=== PATIENT | male | born 1965 | race Caucasian/White ===

== ENCOUNTER 2024-12-15 11:46 | Emergency (ER) | payer BC, SELFPAY ==
[2024-12-15 11:56] VITALS: BP 113/87
[2024-12-15 12:38] LABS: % Basophils 0.6 % (0-2); % Eosinophils 1.5 % (0-6); % Immature Granulocytes 0.1 % (0-0.5); % Lymphocytes 28.2 % (20.5-51.1); % Monocytes 9.7 % (1.7-9.3); % Neutrophils 59.9 % (42.2-75.2); Absolute Eosinophils 0.1 10^3/uL (0-0.7); Absolute Monocytes 0.7 10^3/uL (0.1-0.6); Absolute Neutrophils 4.3 10^3/uL (1.4-6.5); Hematocrit 43.9 % (39.0-52.0); Hemoglobin 15.8 g/dL (13.0-18.0); Mean Corpuscular Hgb 30.7 pg (27.0-31.0); Mean Corpuscular Volume 85.4 fL (80.0-94.0); Mean Platelet Volume 10.4 fL (7.4-10.4); Nucleated Red Blood Cells % 0 % (-); Platelet Count 272 10^3/uL (130-400); Red Blood Cell Count 5.14 10^6/uL (4.70-6.10); Red Cell Dist. Width 11.5 % (11.5-14.5); White Blood Cell Count 7.2 10^3/uL (4.8-10.8)
[2024-12-15 12:47] LABS: COVID-19 Antigen Negative (Negative)
[2024-12-15 12:52] LABS: ALT (SGPT) 35 U/L (0-50); AST (SGOT) 20 U/L (17-59); Albumin 4.3 g/dl (3.5-5.0); Alkaline Phosphatase 44 U/L (38-126); Blood Urea Nitrogen 13 mg/dl (9-20); Calcium 9.4 mg/dl (8.4-10.2); Carbon Dioxide 26 mmol/L (22-30); Chloride 103 mmol/L (98-107); Glucose 98 mg/dl (70-99); Potassium 4.8 mmol/L (3.5-5.1); Sodium 136 mmol/L (135-145); Total Bilirubin 0.8 mg/dl (0.2-1.3); Total Protein 6.9 g/dl (6.3-8.2); eGFR > 60.00
--- NOTE | 2024-12-15 13:52 | ED.GENMED ---
History of Present Illness
General
Chief Complaint: Fever
Source: patient
Exam Limitations: none
Time Seen by Provider: 12/15/24 13:30
History of Present Illness
History of Present Illness:
59yoM with no significant past medical history presenting with his for evaluation of a fever. Patient had oral surgery 9 days ago in which she had a extraction and a bone graft. He was prescribed a week course of amoxicillin which he
completed. He was feeling well for the first few days procedure. About 4 to 5 days ago, he developed fevers, headache, body aches, and malaise. Tmax 101. He has mostly been in bed the past few days due to his symptoms. Last dose of Tylenol was
about 7 hours ago. He is actually feeling better today. Patient is otherwise asymptomatic and denies any ear pain, dental pain, facial swelling, neck stiffness, sore throat, vomiting, diarrhea, cough, abdominal pain, rash. No recent travel, sick
contacts, or history of IV drug use.
Past History
Past History
ED Past Medical History: None
Social History
Tobacco: Non-smoker
Personal:
Living: with family
Phy Exam
General Physical Exam
General Presentation: well appearing and no apparent distress
General age: appears stated age
General Skin: warm and dry
General Habitus: normal
General Mental: alert
ENT Exam
ENT Exam: TM's normal, pharynx normal, neck supple, normocephalic and other (Full ROM of cervical spine without nuchal rigidity. No evidence of abscess/infection at dental extraction site. No elevation of floor of mouth. No facial swelling.)
Eye Exam
Eye Exam: PERRL and conjunctiva normal
Cardiovascular Exam
Cardiovascular Exam: regular rate/rhythm and no murmur
Pulmonary Exam
Pulmonary Exam: lungs clear, no respiratory distress, no rales, no crackles and no rhonchi
Gastrointestinal Exam
Gastrointestinal Exam: non tender, soft and non distended
Neurological Exam
Neurological Exam: alert
Naeem Coma Scale
Eye Opening: Spontaneous
Verbal Response: Oriented
Motor Response: Obeys Commands
GCS Total Score: 15
Skin Exam
Skin Exam: normal color and warm/dry
Psychiatric Exam
Psychiatric Exam: normal mood/affect
Course
Orders/Labs/Results
Orders:
Orders
12/15/24 12:12
COVID-19 Antigen Urgent
Source: Nasal Swab
Complete Blood Count/With Diff Urgent
Comprehensive Metabolic Panel Urgent
Influenza A+B Rapid Molecular Urgent
NAYE Source: Nasal Swab
Specimen Description:
Abnormal Lab Results
12/15/24
12:12
Absolute Monos (auto) 0.7 H 10^3/uL
(0.1-0.6)
Monocytes % 9.7 H %
(1.7-9.3)
12/15/24 12:12
12/15/24 12:12
Vital Signs
Temp: 98.5 F
Initial and Last Documented VS:
Initial Vital Signs
Temp Pulse Resp BP Pulse Ox
97.7 F 72 18 113/87 99
12/15/24 11:56 12/15/24 11:56 12/15/24 11:56 12/15/24 11:56 12/15/24 11:56
Last Documented Vital Signs
Temp Pulse Resp BP Pulse Ox
98.5 F 72 18 113/87 99
12/15/24 14:14 12/15/24 11:56 12/15/24 11:56 12/15/24 11:56 12/15/24 11:56
MDM/Problems Addressed
Differential Diagnosis Includes:
59yoM here with a fever x 5 days up to 101. Had a dental extraction 9 days ago but not having a dental pain. Also having a headache and body aches. Otherwise asymptomatic. Vitals are normal and temp is 97.7 in triage. Repeat temperature during exam
is 98.5 and it has been about 7 hours since last dose of Tylenol. He is very well appearing in no distress. No focal signs of infection on exam. Differential diagnosis includes but is not limited to: viral illness, medication reaction, no evidence
of dental infection noted
Labs obtained in triage. White count is normal. COVID/flu testing negative. Patient researched his symptoms on [employer] and is inquiring about meningitis. He has full ROM of cervical spine without nuchal rigidity. He is not having any neck pain,
photophobia, vomiting. Very low clinical suspicion for meningitis and patient is actually feeling better today. Do not feel lumbar puncture is warranted and patient agrees. Suspect viral illness. Supportive care discussed. He was advised to f/u
closely with his PCP and ED return precautions reviewed. Patient discharged in stable condition.
*Critical Care Note
Total Time (30-74mins, 75-104mins- exclusive of procedures): Not Applicable
ED Attending Note
-
Portions of this chart may have been created with voice recognition software.� Occasional wrong word or��sound alike� substitutions may have occurred due to the inherent limitations of voice recognition software.
Discharge Plan
Departure
Patient Disposition: Home (Routine Discharge)
Date of Disposition: 12/15/24
Time of Disposition: 13:54
Patient with high blood pressure during this ER visit?: No
Discharge Problem:
Fever
Instructions: Fever, Adult (DC)
Prescriptions:
No Action
rabies vacc,human diploid (PF) [Imovax Rabies Vaccine (PF)] 1 ML recon soln
1 ml IM NOW Qty: 3 0RF
Rx Instructions:
give one dose on 01/29, one dose on 02/02 and one dose on 02/09
oxycodone-acetaminophen 5 MG/325 MG tablet
1 tab PO Q6HPRN PRN (Reason: pain) Qty: 8 0RF
Activity Restrictions/Additional Instructions:
Drink plenty of fluids and rest. Continue taking Tylenol as needed for fevers/headache.
Please follow-up with your family doctor in 2-3 days. Return to the ER with any new or worsening symptoms.
Interventions
Interventions:
*Risk Screen - Suicide Last Done: 12/15/24 11:58
*General Assessment Last Done: 12/15/24 11:58
*Neglect/Abuse Screening Last Done: 12/15/24 11:58
*ED- Fall Risk Assessment Last Done: 12/15/24 14:14
*ED COVID-19 Vaccine History Last Done: 12/15/24 11:58
*Nursing Disposition Last Done: 12/15/24 14:14
ED- Neurological Assessment Last Done: 12/15/24 14:14
ED-Skin Assessment Last Done: 12/15/24 14:14
Discharge Date and Time
Discharge Date/Time: 12/15/24 14:15
Print Language: WOLOF
== END 2024-12-15 14:15 | disposition home or self-care (01) ==
LOC: EMR 11:46
PROVIDERS: EMERGENCY PHYSICIAN Emergency Medicine
DX: R50.9 Fever, unspecified (principal)
CPT/HCPCS: 99283; 80053; 85025; 87502; 87811